=== PATIENT | male | born 1960 | race Caucasian/White ===

== ENCOUNTER 2020-10-20 15:24 | Inpatient (IN) | payer OTHER ==
[~2020-10-20] VITALS: Ht 175.3 cm; Wt 65.0 kg
--- NOTE | ~2020-10-20 | EMS ---
[facility] [address] [place] [address] EMS Patient Care Report Name: ZEUS TATUM Room #: REG LEONA Velazquez#: [id number] Admission: 10/20/20 Attend Phys: Discharge: Date of : 56 Report #: [id number] THIS REPORT FOR: //name// Report Transmitted: 10/20/2020 16:20 EMS Care Summary [facility] MED-ACT Incident [id number] @ 10/20/2020 14:39 Incident Location [address] [place] [address] Patient ZEUS TATUM Male, 60 Years 1960 Patient Address [address] [place] [address] Patient History Other,Hypertension (HTN),Stroke/CVA,Parkinson's Disease,Tracheostomy,Hypoparathyroidism,Type 2 Diabetes,Respiratory Failure, Patient Allergies No known allergies, Patient Medications ASA, Carbidopa, Acetaminophen, Robitussin, Humalog, Levetiracetam, Chief Complaint Cough Disposition Transported No Lights/[place] Reason Heart Problems/AICD Transported To [facility] Narrative Dispatched to [facility] on a C-1 Breathing Problem. [facility] [address] [place] [address] EMS Patient Care Report Name: ZEUS TATUM Room #: REG ER Caroline#: [id number] Admission: 10/20/20 Attend Phys: Discharge: Date of : 56 Report #: [id number] Upon arrival we find the patient laying in bed in care of facility nursing staff and S-47. The patient is a trach pt and is there after having a massive stroke in March that has left him completely incapacitated. The patient was on a ventilator for many months but has been weaned off that and now just has the tracheostomy. Staff report that approximately 90 minutes prior to calling for EMS the patient began to cough constantly. The respiratory therapist has performed many deep suctioning procedures, but states that she has not retrieved anything of substance. They have also given the patient Robitussin with no result. They do not know what else to do, so they are having the patient transported for further evaluation at an ER. When we assess the patient we observe the continuous cough fits that nursing staff have reported. We observe a deep suctioning procedure that does not retrieve anything. The patient's vital signs are stable. Vitals Assessed, PMH, Physical Exam, the patient is moved to our cot via sheet pull and into the ambulance for transport. The patient's condition remains unchanged and his vital signs are stable during transport. There is no change to his coughing fits or respiratory status. 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 [place] [address] EMS Patient Care Report Name: ZEUS TATUM Room #: REG LEONA Velazquez#: [id number] Admission: 10/20/20 Attend Phys: Discharge: Date of : 56 Report #: [id number] 14:46,On Scene 14:49,At Patient 15:05,BP: / M,PULSE: 125,RR: R,SPO2: 93 Ox,ETCO2: ,BG: ,PAIN: ,GCS: , 15:06,Depart Scene 15:09,BP: 164/104 M,PULSE: 124,RR: 20 R,SPO2: 95 Ox,ETCO2: ,BG: ,PAIN: ,GCS: 3, 15:15,BP: 133/85 M,PULSE: 127,RR: 20 R,SPO2: 96 Ox,ETCO2: ,BG: ,PAIN: ,GCS: 3, 15:16,At Destination 15:36,Call Closed Disclaimer v1.1 Copyright 2020 [place], [employer] This EMS Care Summary contains data elements from the applicable legal record (which may be displayed differently). It is designed to provide pertinent information for the following purposes: continuity of care, clinical quality, and state data reporting. The complete legal record is available to ED staff and administrators of the receiving hospital in [employer]'s Patient Tracker. All data is provided "as is."
--- NOTE | ~2020-10-20 | EMS ---
[facility] [address] [place] [address] EMS Patient Care Report Name: ZEUS TATUM Room #: REG LEONA Velazquez#: [id number] Admission: 10/20/20 Attend Phys: Discharge: Date of : 56 Report #: [id number] THIS REPORT FOR: //name// Report Transmitted: 10/20/2020 17:00 EMS Care Summary [facility] MED-ACT Incident [id number] @ 10/20/2020 14:39 Incident Location [address] [place] [address] Patient ZEUS TATUM Male, 60 Years 1960 Patient Address [address] [place] [address] Patient History Other,Hypertension (HTN),Stroke/CVA,Parkinson's Disease,Tracheostomy,Hypoparathyroidism,Type 2 Diabetes,Respiratory Failure, Patient Allergies No known allergies, Patient Medications ASA, Carbidopa, Acetaminophen, Robitussin, Humalog, Levetiracetam, Chief Complaint Cough Disposition Transported No Lights/[place] Dis[place] Reason Heart Problems/AICD Transported To [facility] Narrative Dispatched to [facility] on a C-1 Breathing Problem. [facility] [address] [place] [address] EMS Patient Care Report Name: ZEUS TATUM Room #: REG ER Caroline#: [id number] Admission: 10/20/20 Attend Phys: Discharge: Date of : 56 Report #: [id number] Upon arrival we find the patient laying in bed in care of facility nursing staff and S-47. The patient is a trach pt and is there after having a massive stroke in March that has left him completely incapacitated. The patient was on a ventilator for many months but has been weaned off that and now just has the tracheostomy. Staff report that approximately 90 minutes prior to calling for EMS the patient began to cough constantly. The respiratory therapist has performed many deep suctioning procedures, but states that she has not retrieved anything of substance. They have also given the patient Robitussin with no result. They do not know what else to do, so they are having the patient transported for further evaluation at an ER. When we assess the patient we observe the continuous cough fits that nursing staff have reported. We observe a deep suctioning procedure that does not retrieve anything. The patient's vital signs are stable. Vitals Assessed, PMH, Physical Exam, the patient is moved to our cot via sheet pull and into the ambulance for transport. The patient's condition remains unchanged and his vital signs are stable during transport. There is no change to his coughing fits or respiratory status. 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,Surgical Mask on Patient,Response: Unchanged HOOKING MACHINE OPERATOR,BP: 148/97 M,PULSE: 121,RR: 20 R,SPO2: 91 Ox,ETCO2: ,BG: ,PAIN: 0,GCS: 3, 14:37,Call Received 14:37,Psap Call 14:39,Dispatched 14:41,En Route [facility] [address] [place] [address] EMS Patient Care Report Name: ZEUS TATUM Room #: REG LEONA Velazquez#: [id number] Admission: 10/20/20 Attend Phys: Discharge: Date of : 56 Report #: [id number] 14:46,On Scene 14:49,At Patient 15:05,BP: / M,PULSE: 125,RR: R,SPO2: 93 Ox,ETCO2: ,BG: ,PAIN: ,GCS: , 15:06,Depart Scene 15:09,BP: 164/104 M,PULSE: 124,RR: 20 R,SPO2: 95 Ox,ETCO2: ,BG: ,PAIN: ,GCS: 3, 15:15,BP: 133/85 M,PULSE: 127,RR: 20 R,SPO2: 96 Ox,ETCO2: ,BG: ,PAIN: ,GCS: 3, 15:16,At Destination 15:36,Call Closed Disclaimer v1.1 Copyright 2020 [employer], [employer] This EMS Care Summary contains data elements from the applicable legal record (which may be displayed differently). It is designed to provide pertinent information for the following purposes: continuity of care, clinical quality, and state data reporting. The complete legal record is available to ED staff and administrators of the receiving hospital in [employer]'s Patient Tracker. All data is provided "as is."
[2020-10-20 15:25] VITALS: BP 136/81
[2020-10-20 16:04] LABS: HEMATOCRIT 38.3 % (42.0-52.0); HEMOGLOBIN 12.6 gm/dL (14.0-18.0); MCH 28.2 pg (26.0-34.0); MCHC 32.9 g/dL (28.0-37.0); MCV 85.7 fL (80.0-100.0); PLATELET COUNT 367 thou/uL (150-400); RBC 4.47 mil/uL (4.50-6.00); RDW 15.9 % (10.5-14.5); WBC 20.1 thou/uL (4.0-11.0)
[2020-10-20 16:14] LABS: ANION GAP 12 mmol/L (7-16); BUN 38 mg/dL (7-18); CALCIUM 10.4 mg/dL (8.5-10.1); CHLORIDE 98 mmol/L (98-107); CO2 24 mmol/L (21-32); CREATININE 1.1 mg/dL (0.7-1.3); GLUCOSE 137 mg/dL (74-106); POTASSIUM 4.6 mmol/L (3.5-5.1); SODIUM 134 mmol/L (136-145)
[2020-10-20 16:24] LABS: ALBUMIN 3.4 g/dL (3.4-5.0); DIRECT BILIRUBIN < 0.1 mg/dL (<0.1-0.2); SGOT 26 U/L (15-37); SGPT 12 U/L (16-63); TOTAL BILIRUBIN 0.6 mg/dL (0.2-1.0); TOTAL PROTEIN 8.2 g/dL (6.4-8.2); TROPONIN-I <0.06 ng/mL (<0.06)
[2020-10-20 16:31] LABS: URINE BILIRUBIN NEGATIVE (Negative); URINE BLOOD TRACE (Negative); URINE CLARITY CLOUDY; URINE COLOR YELLOW; URINE GLUCOSE-RANDOM* NEGATIVE (Negative); URINE KETONES TRACE (Negative); URINE LEUKOCYTES-REFLEX 3+ (Negative); URINE NITRITE-REFLEX NEGATIVE (Negative); URINE PROTEIN (DIPSTICK) 1+ (Negative); URINE SPECIFIC GRAVITY 1.025 (1.005-1.035); URINE UROBILINOGEN 0.2 E.U./dl (0.2-1.0)
[2020-10-20 16:53] LABS: CASTS None Seen /LPF (None Seen); MUCUS 0-3 Light strn/LPF (None Seen); SQUAMOUS 0-3 Few /LPF (0-3)
[2020-10-20 16:54] LABS: BACTERIA-REFLEX >30 Many /HPF (None Seen); CRYSTALS None Seen /LPF (None Seen); URINE RBC 0-2 Rare /HPF (0-2); URINE WBC-REFLEX >25 Many /HPF (0-5); WBC CLUMPS Many (None Seen)
--- NOTE | 2020-10-20 17:31 | NUR ---
J LUIS [id number]
[2020-10-20 17:35] LABS: ABSOLUTE NEUTROPHILS 16.5 thou/uL (1.4-8.2); ANISOCYTOSIS 1+
[2020-10-20] MEDS ORDERED: BASAGLAR K100 UNIT/1 SUBQ (18:26)
[2020-10-20] MEDS ORDERED: ASPIRIN EC325 M1 PER TUBE (18:26)
[2020-10-20] MEDS ORDERED: HUMALOG100 UNIT/1 SUBQ (18:26)
[2020-10-20] MEDS ORDERED: KEPPRA XR500 MG PER TUBE (18:27)
[2020-10-20] MEDS ORDERED: GLUCERNA 1.2 C237 ML PO (18:27)
[2020-10-20] MEDS ORDERED: CARBIDOPA-LEVO1 EAC5 PER TUBE (18:27)
[2020-10-20] MEDS ORDERED: LIPITOR40 MG PER TUBE (18:27)
[2020-10-21 01:50] LABS: BASOPHILS 0.3 % (0.0-2.0); EOSINOPHILS 3.2 % (0.0-3.0); HEMATOCRIT 30.4 % (42.0-52.0); LYMPHOCYTES 9.3 % (24.0-44.0); MCHC 32.4 g/dL (28.0-37.0); MCV 86.5 fL (80.0-100.0); POLYS 82.2 % (36.0-66.0); RBC 3.52 mil/uL (4.50-6.00); RDW 15.7 % (10.5-14.5); WBC 14.7 thou/uL (4.0-11.0)
[2020-10-21 01:58] LABS: HEMOGLOBIN 9.9 gm/dL (14.0-18.0); PLATELET COUNT 250 thou/uL (150-400)
[2020-10-21 02:11] LABS: ALBUMIN 2.5 g/dL (3.4-5.0); CALCIUM 8.5 mg/dL (8.5-10.1); CREATININE 0.9 mg/dL (0.7-1.3); MAGNESIUM 1.8 mg/dL (1.8-2.4); POTASSIUM 3.8 mmol/L (3.5-5.1); TOTAL BILIRUBIN 0.6 mg/dL (0.2-1.0); TOTAL PROTEIN 6.3 g/dL (6.4-8.2)
--- NOTE | 2020-10-21 07:15 | EKG ---
[address] [place] [address] ELECTROCARDIOGRAM REPORT Name: ZEUS TATUM Room #: 170-12 ADM IN M.R.#: [id number] Admission: 10/20/20 Attend Phys: Noemy Moreno MD Discharge: Date of : 56 Report #: [id number] [facility] ED Test Date: 2020-10-20 Test Time: 15:41:23 Pat Name: ZEUS TATUM Department: Room: 170 Gender: M Instructional Support Specialist: YUE : 1960 Requested By: Andra Sarmiento Order Number: [id number] MD: Dony Mcgowan Measurements Intervals [place] Rate: 126 P: 8 LA: 153 QRS: -41 QRSD: 90 T: 4 QT: 319 QTc: 462 Interpretive Statements Sinus tachycardia Left axis deviation Abnormal R-wave progression, early transition No previous ECG available for comparison Electronically Signed On 10-21-2020 7:15:23 SENIOR ELECTRICAL DESIGN ENGINEER by Dony Mcgowan [email or web address] <ELECTRONICALLY SIGNED> By: Dony Mcgowan MD, [facility] 10/21/20 0715 1541 1541 Dony Mcgowan MD, FACC /EPI
[2020-10-21 08:42] VITALS: BP 97/55
--- NOTE | 2020-10-21 09:50 | EKG ---
[address] [address] ELECTROCARDIOGRAM REPORT Name: ZEUS TATUM Room #: 170-12 ADM IN M.R.#: [id number] Admission: 10/20/20 Attend Phys: Noemy Moreno MD Discharge: Date of : 56 Report #: [id number] [facility] ED Test Date: 2020-10-20 Test Time: 15:40:13 Pat Name: ZEUS TATUM Department: Room: 170 12 Gender: M Drawing Instructor: YUE : 1960 Requested By: Noemy Moreno Order Number: [id number] MD: Moisés Jones Measurements Intervals [place] Rate: 128 P: 6 [place]: 147 QRS: -38 QRSD: 80 T: 13 QT: 305 QTc: 445 Interpretive Statements Sinus tachycardia Ventricular premature complex Probable left atrial enlargement Left axis deviation Abnormal R-wave progression, early transition Borderline ST depression, anterolateral leads Artifact in lead(s) V3,V4,V5,V6 and baseline wander in lead(s) V4 No previous ECG available for comparison Electronically Signed On 10-21-2020 9:50:10 FLOW NURSE by Moisés Jones [email or web address] <ELECTRONICALLY SIGNED> By: Moisés Jones MD, FAC 10/21/20 0950 1540 1540 Moisés Jones MD, [facility] /EPI
[2020-10-21 11:57] VITALS: BP 137/71
[2020-10-21] MEDS ORDERED: TYLENOL 8 HOUR650 MG PER TUBE (12:38)
[2020-10-21 13:29] VITALS: BP 137/71
[2020-10-21 15:15] VITALS: BP 152/74
--- NOTE | 2020-10-21 17:33 | NUR ---
Chart reviewed and discussed with the care team. Pt admitted from 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 The pt was admitted there to LTAC for vent weaning in June this year. He came to them from [facility] after having a hemorragic stroke, s/p craniotomy and hx of parkinsons. The pt is nonverbal and total care with peg/trach in place. He was admitted with increased o2 needs and lots of secretions. Admitting dx sepsis/hcap/uti. Covid and flu negative. Pt's son Juan jr here to visit at bedside. Humphrey Lombardo is the dpoa and [facility] is faxing a copy for the chart. Pt is a full code at this time. The dc planner/scheduler has faxed a clinical updated to [facility]. They can accept the pt for readmission when medically stable. They will need to get ins auth if the pt needs LTAC at sd vs return to termination clerk care. Will follow.
--- NOTE | 2020-10-21 18:28 | NUR ---
TO UNIT BY BED FROM E.Arabella., ACCOMPANIED BY RT. REPORT FROM SANGEETA DEVLIN. WOUND CARE, DR. BAIRD, AND DR. PUENTE ATTEND. FALL PRECAUTIONS IN PLACE.
[2020-10-21 19:36] VITALS: BP 169/88
[2020-10-21 19:53] LABS: HEMATOCRIT 32.7 % (42.0-52.0); HEMOGLOBIN 10.8 gm/dL (14.0-18.0)
[2020-10-22 00:18] VITALS: BP 157/85
[2020-10-22 03:33] LABS: BE(vivo) -2.2 mmol/L (-2 to +3); HCO3 20.7 mmol/L (22.0-26.0); PCO2 29.8 mmHg (35.0-45.0); PO2 82.3 mmHg (80.0-100.0); sO2 96.8 % (92.0-98.0)
[2020-10-22 04:31] VITALS: BP 167/85
--- NOTE | 2020-10-22 06:59 | NUR ---
PATIENTS CARES WERE ASSUMED AT SHIFT CHANGE. PATIENT WAS ASSESSED AND MEDS WERE PASSED. RESPIRATORY WAS CAKK TO TROUBLE SHOT T TUBE THAT WILL NOT STAY ON. DEPT STATES THIS IS GOOD IT GETS.
[2020-10-22 07:02] VITALS: BP 167/71
[2020-10-22 07:47] LABS: HEMATOCRIT 31.5 % (42.0-52.0); HEMOGLOBIN 10.5 gm/dL (14.0-18.0); MCH 28.5 pg (26.0-34.0); MCHC 33.2 g/dL (28.0-37.0); MCV 85.8 fL (80.0-100.0); RBC 3.67 mil/uL (4.50-6.00); RDW 15.4 % (10.5-14.5); WBC 9.5 thou/uL (4.0-11.0)
[2020-10-22 08:00] LABS: CREATININE 0.9 mg/dL (0.7-1.3); POTASSIUM 3.8 mmol/L (3.5-5.1)
--- NOTE | 2020-10-22 09:10 | HC ---
[facility] [place] [place] [address] CONSULTATION Name: ZEUS TATUM Room #: 218-P ADM IN M.R.#: [id number] Admission: 10/20/20 Attend Phys: Noemy Moreno MD Discharge: Date of : 56 Report #: [id number] THIS REPORT FOR: cc: Boyd Richards MD,Boyd Gerber,Keon Phelps MD ~ DATE OF SERVICE: 10/21/2020 CHIEF COMPLAINT: Sacral gluteal ulceration. HISTORY OF PRESENT ILLNESS: This is a 60-year-old male patient who was admitted to the hospital over the last 24 hours. He resides at [facility] and he was admitted for tachypnea and tachycardia. He has a chronic tracheostomy. He has had coughing paroxysms and was admitted for such. He was noted to have some sacral-gluteal breakdown and I have been asked to see him in this regard. The patient is nonverbal. His son is at the bedside, who is pleasant and answers all questions, although does not have a lot of specific medical details to offer. PAST MEDICAL HISTORY: Noted from his records to include type 2 diabetes mellitus, hemorrhagic cerebrovascular accident with severe compromise. He has a chronic tracheostomy. He has hypertension, Parkinson's disease, acute on chronic respiratory failure, sepsis, recurrent urinary tract infection and combined hyperlipidemia. ALLERGIES: No known drug allergies. MEDICATIONS: Include insulin, aspirin, Keppra, carbidopa/levodopa, Lipitor. SOCIAL HISTORY: He has previously used alcohol. He apparently never used any recreational drugs or tobacco. FAMILY HISTORY: Unknown. REVIEW OF SYSTEMS: Unobtainable due to the patient's condition. PHYSICAL EXAMINATION: VITAL SIGNS: Include temperature 37.1, pulse 87, respiratory rate 18, blood pressure 132/74. GENERAL: This is a chronically ill-appearing male patient who appears to be in no obvious distress. HEENT: Head is normocephalic. He appears to have some torticollis. LUNGS: Diminished. NECK: Demonstrates tracheostomy. Site appears to be clean. ABDOMEN: Soft, nontender. [facility] [address] [place] [address] CONSULTATION Name: ZEUS TATUM Room #: 218-P [facility] IN M.R.#: [id number] Admission: 10/20/20 Attend Phys: Noemy Moreno MD Discharge: Date of : 56 Report #: [id number] EXTREMITIES: Examination of the sacral-gluteal region demonstrates what appears to be moisture-associated skin damage with some very superficial scattered ulceration. No evidence of infection. No exposed deep structures. GENITOURINARY: Demonstrates an uncircumcised male. He is noted to have a paraphimosis present with significant edema. I have been able to successfully reduce the foreskin at the bedside. There appears to be no tissue loss at this time. NEUROLOGIC: The patient is not responsive. LABORATORY DATA: Includes white blood cell count of 14,000 with hemoglobin of 9.9, hematocrit of 30.4, platelet count of 250,000. Sodium 139, potassium 3.8, chloride 104, CO2 of 23. BUN 29, creatinine 0.9, glucose 83, phosphorus 3.0, alk phos 104, total protein 6.3, albumin is low at 2.5. CLINICAL IMPRESSION: 1. OMUJ-uxqlzchh-knjiklwuja skin damage to the sacral-gluteal region. 2. Acute on chronic respiratory failure requiring tracheostomy. 3. History of severe neurological injury following hemorrhagic cerebrovascular accident. 4. Paraphimosis, which I reduced successfully at the bedside. 5. Hypertension. 6. Parkinson's disease. 7. Type 2 diabetes mellitus. 8. Hnwskxjs-gs-qzbcig, protein-calorie malnutrition. RECOMMENDATIONS: At this point in time, the patient will need a low air loss pump attached to his bed. We will recommend turning and repositioning every 2 hours while in bed. Recommend zinc oxide-based, barrier cream to the sacral-gluteal region at q. 6 hours and p.r.n. The paraphimosis will just need to be observed for tissue loss. We will need to make sure that we keep the foreskin reduced at all times. Recommend aggressive nutritional support to maximize wound healing. All issues have been discussed with the patient's son at the bedside. I appreciate being asked to see the patient in consultation. <ELECTRONICALLY SIGNED> By: Keon Gerber MD 10/22/20 0910 1837 42 Keon Gerber MD /nt
--- NOTE | 2020-10-22 11:22 | NUR ---
If tube feeds to resume, recommend glucerna 1.2 at 75ml/hr. Once IVF discontinued, add 125ml water flush every 4 hr.
[2020-10-22 12:00] VITALS: BP 117/84
--- NOTE | 2020-10-22 15:42 | NUR ---
THIS ONLINE MERCHANDISING COORDINATOR COMPLETED CONSULT [id number]. PATIENT'S SON, ZEUS () WAS PRESENT. WE HAD A GOOD CONVERSATION AND DID LIFE REVIEW. PATIENT HAS FACED SOME REAL CHALLENGES. WE CONCLUDED IN PRAYER.
[2020-10-22 16:00] VITALS: BP 159/79
[2020-10-22 19:28] LABS: HEMATOCRIT 30.2 % (42.0-52.0); HEMOGLOBIN 10.1 gm/dL (14.0-18.0)
[2020-10-23] VITALS: BP 130/68
[2020-10-23 07:00] VITALS: BP 143/76
[2020-10-23 12:00] VITALS: BP 156/81
[2020-10-23 17:30] VITALS: BP 145/89
[2020-10-23 19:20] VITALS: BP 133/80
--- NOTE | 2020-10-23 20:52 | NUR ---
assessment as charted - meds as per dec - pt iv antibiotic changed and given this afternoon. pt turned q 3 hours - heels in prafo boots. bootom with flaking skin and redness present. z sol applied. pt with pegtube feeding increased to 60 cc this am - viviane well - water flushes given as ordered. mouth care provided. ct of head ordered and completed and neuro doctor in to see patient. seen by Dr Whittaker this afternoon - he spoke with family and patient was made comfort care. dpoa papers on the chart. son at the bedside for most of the day and spoke with Dr Whittaker this afternoon. locker operator nurse will d/c lines etc. pt appears to have resting comfortably this shift. trach insitu suctioned x 3 with thick yellow secretions present.
[2020-10-24 07:45] VITALS: BP 147/65
--- NOTE | 2020-10-24 11:22 | NUR ---
EVLAUTED FOR PAIN, NO SIGN'S OF SUCH AT THIS TIME. APPLIED 2 WARM BLANKETS HE LOOKED CHILLY AND HAD GOOSEBUMPS WELL.
--- NOTE | 2020-10-24 11:50 | NUR ---
Pt now on comfort measures. DNR. Pt's son and dtr here at bedside this morning. DPOA for healthcare and finances is on the chart. Dtr has originals. Outside the hospital DNR form signed by the attending and the dtr. Referrals faxed to both [facility] and hospice houses. Family agreeable to either pending bed availability. Support provided. [facility] form on chart along with DNR. DC to hospice house once accepted. Pt appears comfortable at this time. Care team updated.
--- NOTE | 2020-10-24 17:50 | NUR ---
PT ON COMFORT CARE. POC DISCHARGE TO [facility]. DAUGHTER AND SON AT THE BEDSIDE. EMS TO ARRIVE AT 1915. NO CONCERNS AT THIS TIME.
--- NOTE | 2020-10-26 16:15 | HC ---
[facility] [place] [address] CONSULTATION Name: ZEUS TATUM Room #: 218-P [facility] IN M.R.#: [id number] Admission: 10/20/20 Attend Phys: Nomey Moreno MD Discharge: 10/24/20 Date of : 56 Report #: [id number] THIS REPORT FOR: cc: Boyd Richards MD,Boyd Richards,Castillo Petersen MD ~ DATE OF SERVICE: 10/21/2020 INFECTIOUS DISEASE CONSULTATION REASON FOR CONSULTATION: I was asked to evaluate concerning sepsis. HISTORY OF PRESENT ILLNESS: The patient is a 60-year-old, previous stroke with encephalopathy, respiratory failure requiring tracheostomy and PEG tube placement. He is now in chronic ventilatory jail unit off the ventilator with chronic tracheostomy. Over the last several days, he has had increased oxygen requirements along with increased tracheal secretions. REVIEW OF SYSTEMS: Notes Parkinson's disease, incontinent of urine with sacral wounds. No diarrhea. Tolerating tube feeds. Right hemiparesis following a large left-sided hemorrhagic stroke, status post craniotomy and evacuation of hematoma. A 14-point review of system was negative other than what has been described above. ALLERGIES: None known. MEDICATIONS: As noted on his MAR, having been started on vancomycin, Levaquin and cefepime. Other medications included insulin, aspirin, Keppra, carbidopa/levodopa, Lipitor. PAST MEDICAL HISTORY: Stroke, status post craniotomy for hemorrhagic component 04/2020, Parkinson's disease, diabetes, hypertension, hyperlipidemia, hypothyroidism. FAMILY HISTORY: No report of tuberculosis. SOCIAL HISTORY: Nonsmoker, no significant alcohol intake. PHYSICAL EXAMINATION: VITAL SIGNS: Afebrile and hemodynamically stable. He is on 30% FiO2 on trach shield, noncommunicative, right hemiparesis. Tracheostomy. Peripheral IV in place. Perkins catheter in place that was put in this hospitalization. SKIN: With stage 2 sacral decubitus. No palpable adenopathy. [facility] [address] [place] [address] CONSULTATION Name: ZEUS TATUM Room #: 218-[facility] IN M.R.#: [id number] Admission: 10/20/20 Attend Phys: Noemy Moreno MD Discharge: 10/24/20 Date of : 56 Report #: [id number] EYES: Without scleral icterus. MOUTH: Without mucositis. NECK: Without paratracheal drainage or erythema. LUNGS: Coarse breath sounds in the left base posteriorly. HEART: Regular, without murmur, gallop or rub. ABDOMEN: Soft, no hepatosplenomegaly. PEG site without drainage. GENITOURINARY: External genitalia without mass or lesion. Indwelling Perkins catheter in place. RECTAL: Not performed. EXTREMITIES: Without edema. NEUROLOGIC: The patient was noncommunicative. He was awake. LABORATORY STUDIES: Reviewed. MICROBIOLOGY: Reviewed. IMAGING: Chest x-ray reviewed. IMPRESSION: 1. A 60-year-old presents with sepsis, left lower lobe healthcare-associated pneumonia with previous culture showing Pseudomonas aeruginosa. Current cultures are pending. 2. Healthcare-associated urinary tract infection. Pressure wounds to the sacrum. 3. Parkinson's disease. 4. Stroke with right hemiparesis, aphasia and unresponsive. 5. Diabetes. 6. Anemia. RECOMMENDATIONS: 1. We will continue with broad antibiotic coverage pending culture results. Once these are back, we will narrow his program. Continue wound care of the sacrum and divert the urine stream with indwelling Perkins catheter. 2. Continue offloading, sacral wound. 3. Aspiration precautions and continue full support in the CCU. <ELECTRONICALLY SIGNED> By: Castillo Richards MD 10/26/20 1615 0103 0125 Castillo Richards MD /nt
== END 2020-10-24 20:03 | disposition hospice, home (50) | DRG 871 ==
LOC: ER 15:24 → 2N 18:34 → EROBS 18:34 → 2N 10-21 15:37
PROVIDERS: Emergency Medicine; Hospitalist; Internal Medicine Pulmonary Disease; ADMIT Internal Medicine; ATTEND Internal Medicine
PROC: 5A0935A Assistance with Respiratory Ventilation, Less than 24 Consecutive Hours, High Flow/Velocity Cannula (ICD-10-PCS; principal; 2020-10-21)
DX: A41.9 Sepsis, unspecified organism (principal); J18.9 Pneumonia, unspecified organism; J96.21 Acute and chronic respiratory failure with hypoxia; E43 Unspecified severe protein-calorie malnutrition; N39.0 Urinary tract infection, site not specified; I69.951 Hemiplegia and hemiparesis following unspecified cerebrovascular disease affecting right dominant side; Z16.12 Extended spectrum beta lactamase (ESBL) resistance; E86.0 Dehydration; E78.00 Pure hypercholesterolemia, unspecified; E03.9 Hypothyroidism, unspecified; G20 Parkinson's disease; N47.2 Paraphimosis; E11.9 Type 2 diabetes mellitus without complications; D64.9 Anemia, unspecified; L89.159 Pressure ulcer of sacral region, unspecified stage; E83.52 Hypercalcemia; F02.80 Dementia in other diseases classified elsewhere, unspecified severity, without behavioral disturbance, psychotic disturbance, mood disturbance, and anxiety; B96.5 Pseudomonas (aeruginosa) (mallei) (pseudomallei) as the cause of diseases classified elsewhere; E78.5 Hyperlipidemia, unspecified; Z66 Do not resuscitate; Z20.822 Contact with and (suspected) exposure to COVID-19; Z51.5 Encounter for palliative care; Z93.1 Gastrostomy status; Z79.4 Long term (current) use of insulin; Z79.82 Long term (current) use of aspirin; Z79.899 Other long term (current) drug therapy; Z93.0 Tracheostomy status; Z68.21 Body mass index [BMI] 21.0-21.9, adult
CPT/HCPCS: 10081